=== PATIENT | female | born 1955 | race Caucasian/White ===

== ENCOUNTER 2020-01-07 07:29 | Outpatient (CLI) | payer OTHER ==
--- NOTE | 2020-01-08 09:45 | NM ---
RADIOIODINE THYROID UPTAKE AND SCAN: HISTORY: Hyperthyroidism. Other thyrotoxicosis without thyrotoxic crisis or storm. RADIOPHARMACEUTICAL: 260 uCi iodine-123 administered orally. FINDINGS: Planar anterior and both anterior oblique images of the thyroid gland demonstrate uptake in both lobe s of the thyroid gland. There is a focal area of increased uptake in the left lobe. The 24-hour uptake measures 39% (normal 10-30%). IMPRESSION: Hot nodule in the left lobe with increased 24-hour uptake. POS: AH
== END 2020-01-07 07:30 | disposition home or self-care (01) ==
LOC: NM 07:29
PROVIDERS: ATTEND Internal Medicine Endocrinology, Diabetes & Metabolism
DX: E05.90 Thyrotoxicosis, unspecified without thyrotoxic crisis or storm (principal); E04.1 Nontoxic single thyroid nodule
CPT/HCPCS: 78014; A9516

== ENCOUNTER 2020-02-24 11:52 | Outpatient (CLI) | payer OTHER ==
--- NOTE | 2020-02-24 14:15 | NM ---
Radionucleotide iodine-131 treatment HISTORY: Thyrotoxicosis. Toxic nodule. FINDINGS: The procedure, alternatives of treatment, risks, and protocol for routine cautions were dis cussed with the patient. All questions answered. Without difficulty, the patient was treated with 14.6 mCi iodine-131 p.o. Time equals 1310 hours. Pat ient was monitored for approximately 20 minutes prior to discharge. She will follow-up clinically with Dr. De La Vega on April 14, 2020. IMPRESSION : Successful administration of iodine-131 for toxic nodule.
== END 2020-02-24 11:53 | disposition home or self-care (01) ==
LOC: NM 11:52
PROVIDERS: ATTEND Internal Medicine Endocrinology, Diabetes & Metabolism
DX: E05.20 Thyrotoxicosis with toxic multinodular goiter without thyrotoxic crisis or storm (principal)
CPT/HCPCS: 79005; A9517

== ENCOUNTER 2020-04-01 07:47 | Outpatient (CLI) | payer OTHER ==
--- NOTE | 2020-04-01 09:02 | ULT ---
EXAM: Abdominal ultrasound complete: HISTORY: Right upper quadrant pain COMPARISON: Abdomen and pelvic CT scan, 04/11/2012 FINDINGS: Enlarged echogenic liver evidence for fatty change with some borderline intrahepatic ductal dilatatio n. The gallbladder demonstrates no evidence for gallstones, wall thickening, or pericholecystic fluid. N egative Granados's sign. The common bile duct is 0.8 cm Visualized pancreas: Unremarkable. Visualized abdominal aorta: Unremarkable. Visualized IVC: Unremarkable. Visualized spleen: Unremarkable. Visualized kidneys: 1.2 x 1.6 x 1.7 cm left mid renal cyst. No mass, abscess, adenopathy, or abnormal fluid collection or other acute process. IMPRESSION: Enlarged fatty liver with mild dilatation of the common bile duct and questionable borderline intrahe patic dilatation. Negative Granados's sign. Depending upon concern, consider follow-up abdomen and pelvic CT scan for further assessment.
== END 2020-04-01 07:48 | disposition home or self-care (01) ==
LOC: BICULT 07:47
PROVIDERS: ATTEND Family Medicine
DX: R10.11 Right upper quadrant pain (principal); K76.0 Fatty (change of) liver, not elsewhere classified; K83.8 Other specified diseases of biliary tract
CPT/HCPCS: 93975

== ENCOUNTER 2020-08-10 09:19 | Outpatient (CLI) | payer OTHER | END 2020-08-10 09:20 | disposition home or self-care (01) | LOC: BICMAMMO 09:19 | PROVIDERS: ATTEND Surgery | DX: N64.4 Mastodynia (principal); Z87.898 Personal history of other specified conditions | CPT/HCPCS: 77066; G0279 ==